=== PATIENT | male | born 1980 | race Caucasian/White ===

== ENCOUNTER 2019-06-02 08:27 | Emergency (ER) | payer OTHER ==
[2019-06-02 08:41] VITALS: BP 138/86
--- NOTE | 2019-06-02 08:44 | UC ---
Abdominal Pain Male HPI - HPI Summary HPI Summary: 38 y/o male with injury. On Thursday afternoon was taking tires off of his truck and felt LLQ sharp pain, pt didnt think anything of it and kept working. Later that evening he felt another sharp burning sensation. Pt states the pain will come and go, and if he moves in certain ways he can reproduce the pain. Pt denies the pain radiating. movement worsens sx. rest improves sx. he states he does not feel any bulge in the area. He denies nausea or vomiting. No recent fevers. No previous trauma or hernias in that area in the past. He has tried Motrin and Tylenol which has helped his symptoms. - History of Current Complaint Chief Complaint: UCAbdominalPain Stated Complaint: LOW ABD PAIN Time Seen by Provider: 06/02/19 08:41 Hx Obtained From: Patient Pain Intensity: 0 - Allergies/Home Medications Allergies/Adverse Reactions: Allergies Allergy/AdvReac Type Severity Reaction Status Date / Time lidocaine Allergy Swelling Verified 06/02/19 08:35 Home Medications: Home Medications Acetaminophen [Tylenol] 2 tab PO ONCE 06/02/19 [History Confirmed 06/02/19] Ibuprofen TAB* [Advil TAB*] 400 mg PO ONCE 06/02/19 [History Confirmed 06/02/19] PMH/Surg Hx/FS Hx/Imm Hx Previously Healthy: Yes Other History Of: Negative For: HIV, Hepatitis B - Surgical History Surgical History: Yes Surgery Procedure, Year, and Place: ROTATOR CUFF SX-R - Family History Known Family History: Positive: Cardiac Disease, Hypertension, Diabetes - Social History Alcohol Use: Weekly Substance Use Type: None Smoking Status (MU): Former Smoker Type: Smokeless Tobacco Amount Used/How Often: 1 pack per week When Did the Patient Quit Smoking/Using Tobacco: Apr 2019 Review of Systems All Other Systems Reviewed And Are Negative: Yes Gastrointestinal: Positive: Abdominal Pain. Negative: Vomiting, Diarrhea, Nausea Genitourinary: Positive: Negative Physical Exam Triage Information Reviewed: Yes Appearance: Well-Appearing, No Pain Distress, Well-Nourished Vital Signs: Initial Vital Signs Temp 98.1 F 06/02/19 08:37 Pulse 92 06/02/19 08:37 Resp 14 06/02/19 08:37 BP 138/86 06/02/19 08:37 Pulse Ox 97 06/02/19 08:37 Vital Signs Reviewed: Yes Eyes: Positive: Conjunctiva Clear ENT: Positive: Hearing grossly normal Neck exam: Normal Neck: Positive: 1 Respiratory Exam: Normal Cardiovascular Exam: Normal Abdominal Exam: Other - tenderness to palpation left lower quadrant just above the belt line. No hernia palpated. Approximately 2 x 2 centimeter area Abdomen Description: Positive: No Organomegaly, Soft. Negative: Nontender, Bruit, CVA Tenderness (R), CVA Tenderness (L), Distended, Hernia @, Hepatomegaly , McBurney's Point Tenderness, Pulsatile Mass, Splenomegaly Musculoskeletal Exam: Normal Neurological Exam: Normal Psychological Exam: Normal Skin Exam: Normal Abd Pain Male Course/Dx - Course Course Of Treatment: patient was exerting himself and felt a pull in the left lower quadrant a few days ago. Significant pain with movement, laughing, coughing. Symptoms resolved completely when resting and not activating abdominal musculature. No hernia palpated. No infectious process noted. Advised to rest, ice, analgesics and follow-up with PCP if symptoms not improved. Likely a abdominal strain. No concern for a hernia or strength noted hernia at this time. Discussed if any concerns for nausea, vomiting, worsening pain or fever to go to emergency room immediately. Patient aware and agreeable to plan. - Differential Dx/Clinical Impression Differential Diagnosis/HQI/PQRI: Abdominal Aortic Aneurysm, Constipation, Diverticulitis, Renal Colic, Testicular Torsion, Ureteral Stone Provider Diagnosis: Abdominal muscle strain Discharge ED - Sign-Out/Discharge Documenting (check all that apply): Patient Departure All imaging exams completed and their final reports reviewed: No Studies - Discharge Plan Condition: Good Disposition: HOME Patient Education Materials: Muscle Strain (DC) Forms: *Work Release Referrals: Fabiana Reeves PA [Primary Care Provider] - 4 Days - Billing Disposition and Condition Condition: GOOD Disposition: Home
== END 2019-06-02 09:40 | disposition home or self-care (01) ==
LOC: UCCORT 08:27
DX: S39.011A Strain of muscle, fascia and tendon of abdomen, initial encounter (principal); X50.0XXA Overexertion from strenuous movement or load, initial encounter; Y93.89 Activity, other specified; Y92.9 Unspecified place or not applicable; Z88.4 Allergy status to anesthetic agent; Z87.891 Personal history of nicotine dependence
CPT/HCPCS: 99201; G0463